=== PATIENT | female | born 1995 | race Caucasian/White ===

== ENCOUNTER 2024-01-29 17:02 | Inpatient (IN) | payer OTHER, SELFPAY ==
[2024-01-29] VITALS (16 sets, daily range): BP systolic 79–124; BP diastolic 42–67; PULSE 71–96; RESP 16; TEMP 36.4–36.9
--- NOTE | 2024-01-29 17:49 | PM.OBHP ---
OB - H&P: HPI History of Present Illness Chief complaint: Induction : 1 Para: 0 Date of last menstrual period: 05-05-23 Gestational age based on last menstrual period: 38.4 Indications for induction: other (IUGR) Comments: Patient has been seeing [facility] for management of IUGR. Consult report from [facility] recommends induction and delivery at 38-39 weeks due to IUGR. History of Present Dating criteria: LMP confirmed by 1st trimester US care: good care Ultrasounds: normal 1st trimester US and normal mid trimester US complications: other complications comment: IUGR Medical complications OB: none Labs Blood type: O (+) positive Rubella: nonimmune RPR/VDLR: nonreactive GBS status: negative HBsAG: negative Review of Systems ROS Status of ROS: 10 or more systems reviewed and unremarkable except as noted in history and below Exam Constitutional Vital Signs, click to edit/add: Last Vital Signs Pulse 78 01/29/24 17:45 BP 111/67 01/29/24 17:45 Documenting provider has reviewed patient's vital signs: yes Common normals: no apparent distress and oriented x3 General appearance: cooperative Orientation/consciousness: Yes awake HENMT Common normals: normocephalic Eye Common normals: EOMs intact bilaterally Neck & C-Spine Common normals: full ROM Lymph Lymphatic: no lymphadenopathy noted Chest Common normals: inspection of chest normal Respiratory Common normals: normal respiratory effort Effort & inspection: able to speak in complete sentences Auscultation: clear to auscultation bilaterally Cardio Common normals: regular rate and regular rhythm Rate: regular rate Rhythm: regular rhythm GI Common normals: Normal to inspection, nondistended, normoactive bowel sounds present Common normals: no CVA tenderness Back & Pelvis Common normals: no CVA tenderness Extremity Common normals: normal to inspection Neuro Yanci Coma Scale: document GCS findings Common normals: oriented x3 Psych Psychiatry clinicians, please identify where your Mental Status Exam is documented: Mental Status Exam documented in the separate MSE OB - A/P Assessment and Plan (1) Term : (2) IUGR (intrauterine growth restriction):
[2024-01-29] MEDS: DINOPROSTONE 10 MG VAG INSERT.ER VAGINAL (18:44)
[2024-01-29 18:50] LABS: Amphetamine Screen Urine NEGATIVE (NEGATIVE); Barbiturates Screen Urine NEGATIVE (NEGATIVE); Benzodiazepines Screen Urine NEGATIVE (NEGATIVE); Buprenorphine Screen Urine NEGATIVE (NEGATIVE); Cannabinoid Screen Urine NEGATIVE (NEGATIVE); Cocaine Screen Urine NEGATIVE (NEGATIVE); Methadone Screen Urine NEGATIVE (NEGATIVE); Methamphetamines Screen Urine NEGATIVE (NEGATIVE); Opiate Screen Urine NEGATIVE (NEGATIVE); Oxycodone Screen Urine NEGATIVE (NEGATIVE); Phencyclidine Screen Urine NEGATIVE (NEGATIVE); Tricyclic Antidepressant Urine NEGATIVE (NEGATIVE)
[2024-01-29 19:38] LABS: Hematocrit 35.7 % (36.0-48.0); Hemoglobin 11.1 g/dL (12.0-16.0); Mean Corpuscular HGB Conc 31.1 g/dL (29.9-35.2); Mean Corpuscular Hemoglobin 27.5 pg (26.7-34.0); Mean Corpuscular Volume 88.6 fL (81.0-99.0); Mean Platelet Volume 11.7 fL (9.5-13.5); Platelet Count 245 10^3/uL (150-450); Red Blood Count 4.03 10^6/uL (4.20-5.40); Red Cell Distribution Width 14.6 % (11.0-15.0); White Blood Count 10.7 10^3/uL (4.0-11.0)
[2024-01-29] MEDS: ZOLPIDEM TARTRATE 5 MG TABLET PO (20:33)
[2024-01-30] VITALS (35 sets, daily range): BP systolic 74–120; BP diastolic 42–69; PULSE 62–93; RESP 16; TEMP 36.4–36.9
[2024-01-30] MEDS: LACTATED RINGER'S SOLUTION 1,000 ML 125 ML IV ×2 (06:56→14:24)
[2024-01-30] MEDS: OXYTOCIN/0.9 % SODIUM CHLORIDE 10 UNITS/500 ML PLAST..BAG 6 UNIT IV (07:36)
--- NOTE | 2024-01-30 07:54 | W.PC.ACHO ---
Registration Status: ADM IN Primary Language: Argentine Preferred Language: Argentine Report given to Grzegorz Menendez RN. Active Medications Generic Name Dose Route Start Last Admin Trade Name Freq PRN Reason Stop Dose Admin Acetaminophen 1,000 mg 01/29/24 19:33 Acetaminophen 500 Mg Tablet PO Q6H PRN Pain Calcium Carbonate 500 mg 01/29/24 19:33 Calcium Carbonate 500 Mg (200mg Elemental) Tab Chew PO TID PRN Heartburn Carboprost Tromethamine 250 mcg 01/29/24 18:16 Carboprost Tromethamine 250 Mcg/Ml 1 Ml Vial IM 01/31/24 18:17 Q15M PRN Bleeding Diphenhydramine HCl 25 mg 01/30/24 04:19 Diphenhydramine Hcl 50 Mg/Ml (1ml) Vial IV 01/31/24 04:20 Q6H PRN Itching Ephedrine Sulfate 5 mg 01/30/24 04:19 Ephedrine Sulfate 50 Mg/Ml Vial IV 01/31/24 04:20 Q5M PRN Blood Pressure - Low Fentanyl Citrate 100 mcg 01/30/24 04:19 Fentanyl Citrate/Pf 100 Mcg/2 Ml Vial EPIDURAL ONCE PRN epidural Fentanyl Citrate 100 mcg 01/30/24 04:19 Fentanyl Citrate/Pf 100 Mcg/2 Ml Vial EPIDURAL ONCE PRN epidural Lactated Ringer's 1,000 mls @ 125 mls/hr 01/29/24 18:30 01/30/24 06:56 Lactated Ringers IV 125 mls/hr .Q8H RANDY Administration Oxytocin/Sodium Chloride 10 units in 500 mls @ 6 mls/hr 01/29/24 18:30 01/30/24 07:36 Pitocin 10 Unit/500 Ml-Ns IV 2 milliunit/min CONT RANDY 6 mls/hr Administration Protocol 2 MILLIUNIT/MIN Ropivacaine/Sodium Chloride 400 mg in 200 mls @ 6 mls/hr 01/30/24 04:30 Naropin 0.2% 400 Mg/200 Ml Bag EPIDURAL Q24H RANDY Lidocaine 5 ml 01/29/24 18:16 Lidocaine Viscous 2% 15 Ml Solution TOPICAL ONCE PRN Pain Lidocaine 1 ml 01/29/24 18:16 Lidocaine Hcl 1% 200 Mg/20 Ml Mdv INJ ONCE PRN Pain Lidocaine 5 ml 01/30/24 04:19 Lidocaine Hcl 2% Pf 100 Mg/5 Ml Vial INJ 01/31/24 04:20 Q1H PRN Epidural Methylergonovine Maleate 0.2 mg 01/29/24 18:16 Methylergonovine Maleate 0.2 Mg/Ml Ampule IM 01/31/24 18:17 ONCE PRN Uterine Contractility/Contract Methylergonovine Maleate 0.2 mg 01/29/24 18:16 Methylergonovine Maleate 0.2 Mg Tablet PO 01/31/24 18:17 Q4H PRN Uterine Contractility/Contract Misoprostol 600 mcg 01/29/24 18:16 Misoprostol 100 Mcg Tablet PO 01/31/24 18:17 ONCE PRN Uterine Bleeding Misoprostol 800 mcg 01/29/24 18:16 Misoprostol 100 Mcg Tablet SL 01/31/24 18:17 ONCE PRN Uterine Bleeding Misoprostol 1,000 mcg 01/29/24 18:16 Misoprostol 100 Mcg Tablet MD 01/31/24 18:17 ONCE PRN Uterine Bleeding Naloxone HCl 0.4 mg 01/30/24 04:19 Naloxone Hcl 0.4 Mg/Ml Vial IV 01/31/24 04:20 ONCE PRN Respiratory Depression Ondansetron HCl 4 mg 01/29/24 18:16 Ondansetron Pf 4 Mg/2 Ml Vial IV Q6H PRN Nausea And Vomiting Ondansetron HCl 4 mg 01/29/24 18:16 Ondansetron 4 Mg Rapdis Tablet SL Q6H PRN Nausea And Vomiting Oxytocin 10 unit 01/29/24 18:16 Oxytocin 10 Unit/Ml Vial IM 01/31/24 18:17 ONCE PRN Bleeding Zolpidem Tartrate 5 mg 01/29/24 19:33 01/29/24 20:33 Zolpidem Tartrate 5 Mg Tablet PO 5 mg HS PRN Administration Sleep Diet Category Date Time Status Regular Consistency Diet Diet 01/29/24 18:17 Active IV Insertion/Site Date of IV Line Insertion [20g 01/29/24 left Hand] IV Insertion Time [20g left 18:00 Hand] Neurology Patient orientation (short person,place,time,situation list) Respiratory Oxygen Delivery Method Room Air
[2024-01-30] MEDS: DINOPROSTONE 10 MG VAG INSERT.ER VAGINAL (18:17)
[2024-01-30] MEDS: ZOLPIDEM TARTRATE 10 MG TABLET PO (20:56)
[2024-01-31] VITALS (104 sets, daily range): BP systolic 83–132; BP diastolic 47–96; PULSE 52–157; RESP 16–18; TEMP 36.3–37.3
[2024-01-31] MEDS: LACTATED RINGER'S SOLUTION 1,000 ML 125 ML IV ×3 (07:09→14:16)
[2024-01-31] MEDS: OXYTOCIN/0.9 % SODIUM CHLORIDE 10 UNITS/500 ML PLAST..BAG 6 UNIT IV (08:08)
[2024-01-31] MEDS: ROPIVACAINE HCL/PF 400 MG/200 ML PREMIX 6 MG EPIDURAL (09:24)
[2024-01-31] MEDS: LIDOCAINE HCL 2% PF 100 MG/5 ML VIAL INJ (09:36)
--- NOTE | 2024-01-31 11:37 | PM.EN ---
Event Note Event Note: patient assessed and SVE performed. 2-360/-2 more midline that previously. Dr Solitario to room and SVE performed and FSE applied to assess heart rate patient tolerated exam well. Good pain relief with epidural
[2024-01-31] MEDS: OXYTOCIN/0.9 % SODIUM CHLORIDE 20 UNITS/1,000 ML PLAST..BAG 125 UNIT IV (21:32)
--- NOTE | 2024-01-31 22:16 | PM.OBPRCVD ---
Procedure Procedure: events: Labor Induction and Labor Augmentation Intrapartal events: Ineffective Pushing Induction method: other (cervidil x2 ) Delivery augmentation: rupture of membranes (Dr Solitario performed AROM and placed FSE ) Delivery monitor: external FHT and external uterine Route of delivery: Episiotomy Description: none L&D Laceration Description: vaginal - 2nd degree (per Dr Wise) Delivery repair: Vicryl Estimated blood loss (mL): 350 Anesthesia type: None Disposition: no change Complications: poor expulsatory effort and exhaustion. Patient epiduralized and had difficulty pushing . Decelerations noted down to 60's with pushing and then also down to the 60's when patient rested and did not push. Dr Wise called to come for delivery. When Dr Wise arrived in room, baby was delivery per this provider in attendance. Nuchal cord tight around neck and chest, and reduced easily with delivering. I somersaulted baby through cord. Dr Wise remained in room. She repaired 2nd degree vaginal laceration without difficulty. Infant Delivery date: 01/31/24 Gender: male presentation: vertex Placental delivery description: Spontaneous cord description: 3 Vessels, Nuchal Cord and Around Body x1 cord description comment: tight around neck and chest and reduced easily with delivery. heart rate - 1 minute: 100 bpm or Greater respiratory effort - 1 minute: No Spontaneous Effort muscle tone - 1 minute: Limp reflex response - 1 minute: Minimal Response color - 1 minute: Pallor or Cyanosis total score - 1 minute: 3 heart rate - 5 minute: 100 bpm or Greater respiratory effort - 5 minute: Slow Respiration/Weak Cry muscle tone - 5 minute: Limp reflex response - 5 minute: Minimal Response color - 5 minute: Pallor or Cyanosis total score - 5 minute: 4 heart rate - 10 minute: 100 bpm or Greater respiratory effort - 10 minute: Slow Respiration/Weak Cry muscle tone - 10 minute: Limp reflex response - 10 minute: Minimal Response color - 10 minute: Pallor or Cyanosis total score - 10 minute: 4
[2024-02-01] MEDS: IBUPROFEN 400 MG TABLET 800 MG PO ×3 (00:17→16:53)
[2024-02-01] MEDS: BENZOCAINE/MENTHOL 85 GRAM SPRAY BOTTLE 1 APPLIC TOPICAL (00:17)
[2024-02-01] MEDS: GLYCERIN/WITCH HAZEL PADS 1 PAD TOPICAL (00:18)
[2024-02-01 02:55] VITALS: BP 123/59; PULSE 94
[2024-02-01 03:56] VITALS: BP 123/59; PULSE 94; RESP 18; TEMP 36.7
[2024-02-01 06:04] LABS: Basophils Percent Auto 0.2 % (0.2-2.0); Eosinophils Percent Auto 0.2 % (0.9-7.0); Hematocrit 28.8 % (36.0-48.0); Hemoglobin 9.2 g/dL (12.0-16.0); Immature Granulocytes Abs Auto 0.11 10^3/uL (0.00-0.03); Immature Granulocytes Pct Auto 0.6 % (0.0-0.5); Lymphocytes Absolute Auto 1.6 10^3/uL (1.2-3.8); Lymphocytes Percent Auto 9.1 % (20.5-60.0); Mean Corpuscular HGB Conc 31.9 g/dL (29.9-35.2); Mean Corpuscular Volume 87.8 fL (81.0-99.0); Mean Platelet Volume 11.7 fL (9.5-13.5); Monocytes Absolute Auto 0.9 10^3/uL (0.3-0.8); Monocytes Percent Auto 5.3 % (1.7-12.0); Neutrophils Absolute Auto 15.1 10^3/uL (1.4-6.5); Neutrophils Percent Auto 84.6 % (43.0-75.0); Platelet Count 220 10^3/uL (150-450); Red Blood Count 3.28 10^6/uL (4.20-5.40); Red Cell Distribution Width 14.9 % (11.0-15.0); White Blood Count 17.8 10^3/uL (4.0-11.0)
[2024-02-01] MEDS: DOCUSATE SODIUM 100 MG CAPSULE PO ×2 (08:27→22:42)
[2024-02-01] MEDS: FERROUS SULFATE 325 MG TABLET PO ×2 (08:28→22:42)
--- NOTE | 2024-02-01 08:42 | PM.OBPN ---
OB - PN: Subj Subjective Patient comments: no complaints [place] status: doing well Exam Constitutional Vital Signs, click to edit/add: Last Vital Signs Temp 98.0 F 02/01/24 03:56 Pulse 94 H 02/01/24 03:56 Resp 18 02/01/24 03:56 BP 123/59 02/01/24 03:56 O2 Del Method Room Air 02/01/24 03:56 Common normals: no apparent distress GI Other: Fundus - firm below Umbilicus Other: perineum - minimal bleeding Results Labs Labs: Short CBC 02/01/24 Range/Units 05:49 WBC 17.8 H (4.0-11.0) 10^3/uL Hgb 9.2 L (12.0-16.0) g/dL Hct 28.8 L (36.0-48.0) % Plt Count 220 (150-450) 10^3/uL OB - PN: A/P Assessment and Plan (1) Term : (2) IUGR (intrauterine growth restriction): Plan - Vaginal Delivery day: 1 Plan: routine care Time Spent with Patient Time: Total time spent is greater than 50% in coordination of care (as documented) at patient's floor/unit and/or counseling patient: Total time spent with greater than 50% in coordination of care (as documented) at patient's floor/unit and/or counseling patient: less than 15 minutes
[2024-02-01 09:30] VITALS: RESP 16
[2024-02-01 09:56] VITALS: BP 108/67; PULSE 84
[2024-02-01 16:53] VITALS: BP 111/64; PULSE 87
[2024-02-01 17:54] VITALS: RESP 16; TEMP 36.6
[2024-02-02 00:59] VITALS: BP 113/73; PULSE 86
[2024-02-02 01:00] VITALS: BP 113/73; PULSE 86; RESP 16; TEMP 36.6
[2024-02-02] MEDS: IBUPROFEN 400 MG TABLET 800 MG PO ×2 (01:04→15:36)
--- NOTE | 2024-02-02 08:14 | P.OBPN_ITS ---
OB - PN: Subj Subjective Patient comments: no complaints [place] status: doing well Exam Constitutional Vital Signs, click to edit/add: Last Vital Signs Temp 97.9 F 02/02/24 01:00 Pulse 86 02/02/24 01:00 Resp 16 02/02/24 01:00 BP 113/73 02/02/24 01:00 O2 Del Method Room Air 02/02/24 01:00 Documenting provider has reviewed patient's vital signs: yes Common normals: no apparent distress GI Inspection: normal to inspection Other: Fundus - firm below umbilicus Other: perineum - minimal bleeding OB - PN: A/P Assessment and Plan (1) Term : Assessment and Plan: Doing well Home today (2) IUGR (intrauterine growth restriction): Plan - Vaginal Delivery day: 2 Plan: routine care and discharge home Time Spent with Patient Time: Total time spent is greater than 50% in coordination of care (as documented) at patient's floor/unit and/or counseling patient: Total time spent with greater than 50% in coordination of care (as documented) at patient's floor/unit and/or counseling patient: less than 15 minutes
--- NOTE | 2024-02-02 08:21 | PM.OBDS ---
DS: Providers Provider Date of admission: 01/29/24 17:02 Primary care physician: Non-Staff Physician, DS: Diagnosis Discharge Diagnosis (1) Term : (2) IUGR (intrauterine growth restriction): OB - DS: Summary Infant Delivery method: spontaneous vaginal delivery Gender: male Discharge plan: home Time Spent with Patient Time attestation: Total time spent providing and/or coordinating discharge services: Time spent: less than 30 minutes Exam Constitutional Vital Signs, click to edit/add: Last Vital Signs Temp 97.9 F 02/02/24 01:00 Pulse 86 02/02/24 01:00 Resp 16 02/02/24 01:00 BP 113/73 02/02/24 01:00 O2 Del Method Room Air 02/02/24 01:00 Discharge Plan Discharge Disposition: Home, Self-Care Activity: resume usual activities as tolerated Diet: advance to your usual diet Forms: Portal Instructions Follow Up Appointments: SCHEDULED
[2024-02-02 09:43] VITALS: BP 129/82; PULSE 94; RESP 18; TEMP 36.9
[2024-02-02] MEDS: DOCUSATE SODIUM 100 MG CAPSULE PO (15:36)
[2024-02-02] MEDS: FERROUS SULFATE 325 MG TABLET PO (15:37)
== END 2024-02-02 20:20 | disposition home or self-care (01) | DRG 807 ==
PROVIDERS: Admitting Provider Midwife; Visit Provider Midwife
DX: O36.5930 Maternal care for other known or suspected poor fetal growth, third trimester, not applicable or unspecified (principal); Z37.0 Single live birth; Z3A.38 38 weeks gestation of pregnancy; O70.1 Second degree perineal laceration during delivery
CPT/HCPCS: 36415; 59050; 59410; 80307; 85025; 85027; 86900; 86901; 88307; 96365; 96366

== ENCOUNTER 2024-02-03 08:43 | Outpatient (OUT) | payer OTHER, SELFPAY ==
--- OUTSIDE RECORDS SUMMARY | 2024-02-03 08:51 | XMS_ITS | CCD ---
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 Name Role Phone Rai Gonzales MD Primary Care Provider Unavaila ble Unavailable Primary Care Provider Unavailabl e GONZALES, RAI P Primary Care Unavailable FLORO, JOSEPH Referring Unavailable DOCHEVA, NIKOLINA P Attending Unavailable FLORO, JOSEPH Referring Unavailable GONZALES, RAI P Primary Care Unavailable DOCHEVA, NIKOLINA P Referring Unavailable GONZALES, RAI P Primary Care Unavailable DOCHEVA, NIKOLINA P Referring Unavailable GONZALES, RIA P Primary Care Unavailable DIANNA, RASHID Attending Unavailable GONZALES, RAI P Primary Care Unavailable DIANNA, RASHID Attending Unavailable GONZALES, RAI P Primary Care Unavailable FLORO, JOSEPH Referring Unavailable FLORO, JOSEPH Referring Unavailable GONZALES, RAI P Primary Care Unavailable DIANNA, RASHID Attending Unavailable DIANNA, RASHID Referring Unavailable GONZALES, RAI P Primary Care Unavailable FLORO, JOSEPH L Referring Unavailable FLORO, JOSEPH L Attending Unavailable FLORO, JOSEPH L Attending Unavailable FLORO, JOSEPH L Attending Unavailable FLORO, JOSEPH L Attending Unavailable FLORO, JOSEPH L Attending Unavailable FLORO, JOSEPH L Attending Unavailable FLORO, JOSEPH L Attending Unavailable FLORO, JOSEPH L Attending Unavailable Medications Current Medications Medication Drug Class(es) Dates Sig (Normalized) Sig (Original) docusate sodium 100 mg oral capsule (12 sources) Start: 11-21-2023 End: 02-19-2024 take 1 capsule by mouth in the morning docusate sodium (Colace) 100 MG capsule Indications: Anemia affecting first Take 1 capsule (100 mg) by mouth in the morning and 1 capsule (100 mg) before bedtime. 30 capsule 5 11/21/2023 02/19/2024 Active ferrous sulfate 325 mg oral tablet (12 sources) Start: 11-21-2023 End: 02-19-2024 take 1 tablet by mouth at mealtime ferrous sulfate (FerrouSul) 325 (65 Fe) MG tablet Indications: Anemia affecting first Take 1 tablet (325 mg) by mouth in the morning. Take with meals. 30 tablet 2 11/21/2023 02/19/2024 Active ondansetron 8 mg oral tablet (6 sources) Serotonin-3 Receptor Antagonist take 1 tablet by mouth every eight hours as needed for nausea and vomiting ondansetron (ZOFRAN) 8 mg tablet Take 1 tablet (8 mg total) by mouth every 8 (eight) hours as needed for nausea or vomiting. 0 Active CQI78-EC-rx5-mgr-ro a-fish oil ( GUMMY) 400 mcg-35 mg -25 mg-5 mg tablet,chewable (6 sources) Start: 12-23-2023 ETX23-BD-wk1-qjp-c pa-fish oil ( GUMMY) 400 mcg-35 mg -25 mg-5 mg tablet,chewable Indications: 33 weeks gestation of Chew 1 tablet and swallow in the morning. 30 tablet 12 12/23/2023 Active Completed/Discontinued Medications Medication Drug Class(es) Dates Sig (Normalized) Sig (Original) ibuprofen 800 mg oral tablet (1 source) Nonsteroidal Anti-inflammatory Drug End: 12-23-2023 take 1 tablet by mouth every six hours as needed for pain ibuprofen (ADVIL,MOTRIN) 800 mg tablet Take 800 mg by mouth every 6 (six) hours as needed for pain. 0 12/23/2023 Discontinued (Therapy completed) PNV no.95/ferrous fum/folic ac ( ORAL) (1 source) End: 12-23-2023 PNV no.95/ferrous fum/folic ac ( ORAL) Take by mouth. 0 12/23/2023 Discontinued (Alternate therapy) Problems Problem Classification Problem Date Documented Da te Episodic/Chronic Other complications of (1 source) heart echogenicity on obstetric ultrasound scan; Translations: [Abnormal ultrasonic finding on screening of mother] 12-23-2023 Episodic Other complications of (12 sources) Poor growth affecting management; Translations: [Maternal care for other known or suspected poor growth, third trimester, not applicable or unspecified] Onset: 01-13-2024 01-13-2024 Episodic Other complications of (1 source) Abnormal ultrasonic finding on screening of mother; Translations: [Abnormal ultrasonic finding on screening of mother] Onset: 12-23-2023 Episodic Other complications of (1 source) Supervision of high risk , unspecified, unspecified trimester; Translations: [Supervision of high risk , unspecified, unspecified trimester] Onset: 01-20-2024 Episodic Other complications of (1 source) Maternal care for other known or suspected poor growth, unspecified trimester, not applicable or unspecified; Translations: [Maternal care for other known or suspected poor growth, unspecified trimester, not applicable or unspecified] Onset: 01-20-2024 Episodic Other complications of (1 source) Maternal care for other known or suspected poor growth, third trimester, not applicable or unspecified; Translations: [Maternal care for other known or suspected poor growth, third trimester, not applicable or unspecified] Onset: 01-13-2024 Episodic Other screening for suspected conditions (not mental disorders or infectious disease) (3 sources) Encounter for other specified screening; Translations: [Patient encounter status] Onset: 12-23-2023 01-16-2024 Episodic Polyhydramnios and other problems of amniotic cavity (3 sources) Polyhydramnios; Translations: [Polyhydramnios, third trimester, not applicable or unspecified] Onset: 01-20-2024 01-13-2024 Episodic Residual codes; unclassified (1 source) Gestation period, 33 weeks; Translations: [33 weeks gestation of ] 12-23-2023 Episodic Residual codes; unclassified (1 source) 33 weeks gestation of ; Translations: [33 weeks gestation of ] Onset: 12-23-2023 Episodic Unclassified (1 source) possible IUGR Onset: 12-23-2023 Unclassified (1 source) add on for FGR Onset: 01-13-2024 Results Test Name Value Interpretation Reference Range Facil ity US OB FOLLOW UP TRANSABDOMIN AL APPROACHon 12-09-2023 US OB FOLLOW UP TRANSABDOMINAL APPROACH FINDINGS: Single live intrauterine . heart rate 163 bpm. Cephalic position. Grade 1 anterior placenta. SIMRAN 12.7 cm. Cervical length 5.0 cm. Estimated sonographic gestational age 30 weeks, 0 days. Gestational age by dates 31 weeks, 5 days. Estimated sonographic date of delivery February 17, 2024. Estimated weight 1517 g (6.7%, by LMP percentile). BPD 7.54 cm. HC 26.57 cm. FL 6.00 cm. AC 25.48 cm. IMPRESSION: Impression: Single live intrauterine with estimated sonographic gestational age 30 weeks, 0 days. Estimated weight 1517 g. ELECTRONICALLY SIGNED BY: Nahten Beck MD Normal Not Available US OB 14+ WEEKS ANATOMY SCAN on 09-23-2023 US OB 14+ WEEKS ANATOMY SCAN EXAM: US OB 14+ WEEKS ANATOMY SCAN [id number] CLINICAL INDICATION: Anatomy scan COMPARISON: 07/02/2023 FINDINGS: Transabdominal imaging was performed. A single living intrauterine demonstrates spontaneous movement. Cervical length is at least 6.2 cm and the cervix is closed. heart rate is 138 beats per minute. Amniotic fluid index is 13.4 cm, 38th percentile. Fetus is in breech position. The placenta is anterior, grade 1, the edge 2 cm from the cervix. Measurements include: biparietal diameter 4.6 cm, head circumference 17.4 cm, abdominal circumference 15.0 cm and femur length 3.2 cm. This calculates to a mean gestational age by ultrasound of 20 weeks 0 days. Estimated date of delivery is 02/10/2024. Estimated weight is 331 g (12 ounces). Estimated weight percentile is 17%. The following anatomy is identified: Lateral ventricles, cerebellum, cisterna magna, orbits, four-chamber heart with left and right ventricular outflow tracts, stomach, kidneys, three-vessel cord with insertion, bladder, male genitalia, 12 long bones, diaphragm, longitudinal and transverse images of the spine. There are no gross abnormalities however please note that ultrasound cannot detect all anomalies. IMPRESSION: Single live intrauterine at 20 weeks gestation. See details above. ELECTRONICALLY SIGNED BY: José Miguel Flores MD Normal Not Available Vital Signs Date Time Vital Sign Value Performing Clinician Faci josiey 01-16-2024 09:16-0500 Body mass index (BMI) [Ratio] 37.79 kg/m2 Joseph Vickerso CNM Work Phone: [facility] 01-16-2024 09:16-0500 Body weight 90.72 kg Joseph Guallpa CNM Work Phone: [facility] 01-16-2024 09:16-0500 Diastolic blood pressure 80 mm[Hg] Joseph Vickerso CNM Work Phone: [facility] 01-16-2024 09:16-0500 Systolic blood pressure 118 mm[Hg] Joseph Vickerso CNM Work Phone: [facility] 01-13-2024 11:42-0500 Body height 154.9 cm Rashid Bustamante MD Work Phone: [facility] 01-13-2024 11:42-0500 Body mass index (BMI) [Ratio] 37.6 kg/m2 Rashid Bustamante MD Work Phone: [facility] 01-13-2024 11:42-0500 Body weight 90.27 kg Rashid Bustamante MD Work Phone: [facility] 01-13-2024 11:42-0500 Diastolic blood pressure 63 mm[Hg] Rashid Bustamnate MD Work Phone: [facility] 01-13-2024 11:42-0500 Heart rate 76 /min Rashid Bustamante MD Work Phone: [facility] 01-13-2024 11:42-0500 Systolic blood pressure 100 mm[Hg] Rashid Bustamante MD Work Phone: [facility] 12-23-2023 13:56-0500 Diastolic blood pressure 63 mm[Hg] Vega Torres MD Work Phone: [facility] 12-23-2023 13:56-0500 Heart rate 91 /min Vega Torres MD Work Phone: [facility] 12-23-2023 13:56-0500 Systolic blood pressure 111 mm[Hg] Vega Torres MD Work Phone: [facility] 12-09-2023 17:33-0500 Diastolic blood pressure 70 mm[Hg] Joseph Floro CNM Work Phone: [facility] 12-09-2023 17:33-0500 Systolic blood pressure 112 mm[Hg] Joseph Floro CNM Work Phone: [facility] Encounters Encounter Date Encounter Type Care Provider Facility Start: 01-29-2024 End: 01-30-2024 ambulatory JOSEPH L FLORO Not Available Start: 01-28-2024 Telephone encounter Stephanie Granda RDMS, RVT [facility] US Imaging Start: 01-23-2024 End: 01-24-2024 ambulatory JOSEPH L FLORO Not Available Start: 01-21-2024 Orders Only Maria Fernanda Harrison CMA [facility] r[facility]- Medicine at [facility] Comment on above: Poor growth af fecting management of mother in third trimester, single or unspecified fetus (Primary Dx) Start: 01-20-2024 End: 01-21-2024 ambulatory RASHID CAMPOSUC [facility] Start: 01-16-2024 Bamboo flowsheet Joseph L Juan ro CNM Work Phone: [facility] Start: 01-16-2024 Bamboo flowsheet Joseph L Juan ro CNM Work Phone: [facility] Start: 01-16-2024 End: 01-17-2024 ambulatory JOSEPH L FLORO Not Available Start: 01-16-2024 End: 01-16-2024 Subsequent care visit Joseph L Floro CNM Work Phone: [facility] Comment on above: screening for streptococcus B; IUGR (intrauterine growth restriction) affecting care of mother, third trimester, fetus 1 Start: 01-13-2024 End: 01-13-2024 Orders Only Berkley Anthony RN [facility] Comment on above: Poor growth af fecting management of mother in third trimester, single or unspecified fetus (Primary Dx); Polyhydramnios in third trimester complication, single or unspecified fetus Start: 01-13-2024 End: 01-13-2024 Office outpatient visit 15 minutes Rashid Bustamante MD Work Phone: [facility]- [facility] at [facility] Comment on above: Poor growth af fecting management of mother in third trimester, single or unspecified fetus (Primary Dx) Start: 01-02-2024 End: 01-03-2024 ambulatory JOSEPH L FLORO Not Available Start: 12-31-2023 End: 12-31-2023 ambulatory [facility] Start: 12-23-2023 End: 12-23-2023 ambulatory [facility] Start: 12-23-2023 End: 12-23-2023 Office consultation new/estab patient 60 min Vega Torres MD Work Phone: [facility] Comment on above: 33 weeks gestation o f (Primary Dx); Echogenic intracardiac focus of fetus on ultrasound Start: 12-09-2023 End: 12-10-2023 ambulatory JOSEPH L FLORO Not Available Start: 12-09-2023 End: 12-09-2023 Subsequent care visit Joseph L Floro CNM Work Phone: [facility] Comment on above: Poor growth af fecting management of mother in third trimester, single or unspecified fetus (Primary Dx) Start: 11-19-2023 End: 11-19-2023 ambulatory JOSEPH L FLORO Not Available Start: 11-07-2023 End: 11-08-2023 ambulatory JOSEPH L FLORO Not Available Start: 10-10-2023 End: 10-11-2023 ambulatory JOSEPH L FLORO Not Available Plan of Treatment Date Care Activity Detail Author Start: 01-21-2025 End: 01-21-2025 US MFM with or without consult US MFM with or without consult Imaging Routine Poor growth affecting management of mother in third trimester, single or unspecified fetus Expected: 01/21/2025 (Approximate), Expires: 01/21/2025 [facility] Work Phone: Comment on above: Expected: 01/21/2025 (Approximate), Expires: 01/21/2025 Start: 01-13-2025 Adult BMI Screening Adult BMI Screen ing [facility] Start: 01-13-2025 Tobacco Screening Tobacco Screening [facility] Start: 12-23-2024 Tobacco Screening Tobacco Screening [facility] Start: 02-11-2024 End: 01-13-2025 US MFM with or without consult US MFM with or without consult Imaging Routine Poor growth affecting management of mother in third trimester, single or unspecified fetus Polyhydramnios in third trimester complication, single or unspecified fetus Expected: 02/11/2024 (Approximate), Expires: 01/13/2025 [facility] Comment on above: Expected: 02/11/2024 (Approximate), Expires: 01/13/2025 Start: 02-03-2024 End: 02-03-2024 Patient encounter procedure 02/03/2024 3:00 PM EST Appointment [facility] Imaging [address] [place] [id number] [facility] Start: 01-23-2024 End: 01-23-2024 Patient encounter procedure 01/23/2024 3:30 PM EST Routine [facility] [address] [place] [address] Joseph Guallpa CNM [address] [place], [place] [id number] [facility] Start: 01-20-2024 End: 01-13-2025 US MFM with or without consult US MFM with or without consult Imaging Routine Poor growth affecting management of mother in third trimester, single or unspecified fetus Polyhydramnios in third trimester complication, single or unspecified fetus Expected: 01/20/2024 (Approximate), Expires: 01/13/2025 [facility] Work Phone: Comment on above: Expected: 01/20/2024 (Approximate), Expires: 01/13/2025 Start: 01-16-2024 End: 01-16-2025 STREPTOCCOUS, GROUP B CULTURE STREPTOCCOUS, GROUP B CULTURE Lab Routine screening for streptococcus B Expected: 01/16/2024 (Approximate), Expires: 01/16/2025 [facility] Work Phone: Comment on above: Expected: 01/16/2024 (Approximate), Expires: 01/16/2025 Start: 01-16-2024 End: 01-16-2025 US biophysical profile wo non stress testing US biophysical profile wo non stress testing Imaging Routine IUGR (intrauterine growth restriction) affecting care of mother, third trimester, fetus 1 Expected: 01/16/2024, Expires: 01/16/2025 [facility] Comment on above: Expected: 01/16/2024 , Expires: 01/16/2025 Start: 01-16-2024 End: 01-16-2024 Patient encounter procedure 01/16/2024 9:00 AM EST Routine [facility] [address] [place] [phone] Joseph Guallpa CNM [address] [place], [place] [id number] [facility] Start: 01-14-2024 End: 01-14-2024 Telemedicine consultation with patient 01/14/2024 1:00 PM EST Telemedicine [facility] at [facility] [address] [place] [phone] Vega Torres MD [address], [address] [place] [id number] [facility] Start: 01-13-2024 End: 01-13-2024 Patient encounter procedure 01/13/2024 11:00 AM EST Appointment [facility] [place] [address] [facility] Start: 12-31-2023 End: 12-31-2023 Patient encounter procedure 12/31/2023 11:00 AM EST Appointment [facility] [address] [place] [address] [facility] Start: 08-02-2023 Influenza vaccination Influenza Vacc ine [facility] Start: 08-09-2020 DTaP,Tdap and Td Vaccines (7 - Td or Tdap) DTaP,Tdap and Td Vaccines (7 - Td or Tdap) [facility] Start: 2018 Screening for malign ant neoplasm of cervix Pap Smear [facility] Start: 2015 Adult BMI Follow Up Plan Adult BMI Follow Up Plan [facility] Start: 2015 Adult BMI Screening Adult BMI Screen ing [facility] Start: 2009 Depression Screening Depression Scre ening [facility] Payers Date Payer Category Payer Unknown [employer] [id number] 2023-Present [phone] [address] [place] [address] [id number] 2023 Private Health Insurance [id number] 2023 Private Health Insurance [id number] 2023 Unknown [id number] 2017 Private Health Insurance [id number] 1997 Unknown [id number] 286 1997 Unknown [id number] [id number] 286 1997 Unknown [id number] 2.16.840.1.630395.3.579.2.1 286 1997 Unknown [id number] 2.16.840.1.422197.3.579.2.1 286 1997 Unknown [id number] 2.16.840.1.489910.3.579.2.1 286 1997 Unknown [id number] 2.16.840.1.376006.3.579.2.1 286 1997 Unknown [id number] 2.16.840.1.509109.3.579.2.1 286 1997 Unknown [id number] 2.16.840.1.215447.3.579.2.1 286 1997 Unknown [id number] 2.16.840.1.307731.3.579.2.1 259 1997 Unknown [id number] 2.16.840.1.920891.3.579.2.1 259 1997 Unknown [id number] 2.16.840.1.444552.3.579.2.1 259 1997 Unknown [id number] 2.16.840.1.838422.3.579.2.1 259 1997 Unknown [id number] 2.16.840.1.394986.3.579.2.1 259 1997 Unknown [id number] 2.16.840.1.378508.3.579.2.1 259 1997 Unknown [id number] 2.16.840.1.127688.3.579.2.1 259 1997 Unknown [id number] 2.16.840.1.505364.3.579.2.1 259 1997 Unknown [id number] 259 Social History Date Type Detail Facility Start: 07-03-2023 End: 12-23-2023 Tobacco smoking status MOIS Ex-smoker [facility] History of tobacco use Current smoker [facility] History of tobacco use Cigarette Smoker P [facility] History of tobacco use Tobacco U se Types Packs/Day Years Used Date Smoking Tobacco: Former Cigarettes Vaping/E-cigarettes Smokeless Tobacco: Never [facility] Start: 07-03-2023 End: 12-23-2023 Tobacco use and exposure Smokeless tobacco non-user [facility] Start: 12-23-2023 End: 01-13-2024 Alcohol intake Ex-drinker (finding) [facility] Start: 11-20-2019 End: 01-12-2021 History of Social function [facility] Start: 11-20-2019 End: 01-12-2021 Alcohol Use Disorder Identification Test - Consumption [AUDIT-C] [facility] Frequency of Alcohol Consumption Never [facility] Start: 05-19-2023 [facility] Start: 1995 Sex Assigned At Not on file [facility] Clinical Notes 12-09-2023 to 01-28-2024 Telephone Encounter - Stephanie Granda RDMS, SANNA - 01/28/2024 12:11 PM ESTTelephone Encounter - Stephanie Granda RDMS, RVT - 01/28/2024 12:11 PM Сергей Guallpa CNM - 01/16/2024 9:00 AM EST Note Date & Type Note Facility 01-28-2024 Miscellaneous Notes Formattin g of this note might be different from the original. Call made to [facility]. They confirmed that the patient is scheduled for induction on 01/29/24. Due to induction, the patient is not scheduled for any further umbilical Dopplers. documented in this encounter [facility] 01-28-2024 Telephone encount er Note Call made to [facility]. They confirmed that the patient is scheduled for induction on 01/29/24. Due to induction, the patient is not scheduled for any further umbilical Dopplers. [facility] 01-16-2024 History of Presen t illness Narrative Subjective No chief complaint on file. Marilu Oconnell is a 28 y.o. at 36w4d with a working estimated date of delivery of 02/09/2024, by Last Menstrual Period who presents for a routine visit. She denies vaginal bleeding, leakage of fluid, decreased movements, or contractions. Her is complicated by: IUGR, sees [facility] Objective Physical Exam weight: 200 lb Expected Total Weight Gain: 15 lb-25 lb Pregravid BMI: 29.30 BP: 118/80 Urine glucose-negative,protein-negati ve Reactive NST today Assessment/Plan Diagnoses and all orders for this visit: screening for streptococcus B - STREPTOCCOUS, GROUP B CULTURE; Future IUGR (intrauterine growth restriction) affecting care of mother, third trimester, fetus 1 - US biophysical profile wo non stress testing; Future Continue vitamin. Labs reviewed. GBS taken. Expected mode of delivery Follow up in 1 week for a routine visit. documented in this encounter [facility] 01-13-2024 Telephone encount er Note MFM left a vm that they would like you to order a test with the DX OF IUT-R Non stress test. Please call [phone] and let them know when she is scheduled. [facility] 01-13-2024 Miscellaneous Notes Formattin g of this note might be different from the original. MFM left a vm that they would like you to order a test with the DX OF IUT-R Non stress test. Please call [phone] and let them know when she is scheduled. documented in this encounter [facility] 01-13-2024 Miscellaneous Notes Formattin g of this note might be different from the original. VM left for [facility] in [place] regarding scheduling non-stress tests for this patient. Pump Press Operator left patient name, date of , and our contact number for any other questions. documented in this encounter [facility] 01-13-2024 Telephone encount er Note VM left for [facility] in [place] regarding scheduling non-stress tests for this patient. Pump Press Operator left patient name, date of , and our contact number for any other questions. [facility] 01-13-2024 History of Presen t illness Narrative Headache/epigastric pain/blurry vision/swelling? No Cramping/contractions? Cramping occasionally Abnormal vaginal discharge? No Spotting or vaginal bleeding? No Loss of fluid like your water may have broken? No Recent ER visits or hospitalizations? No Any concerns that you would like me to mention to the provider today? No REASON FOR TELEMEDICINE VIDEO OFFICE VISIT: growth restriction with estimated weight at the 7th percentile. HISTORY OF PRESENT ILLNESS: Marilu Oconnell is a pleasant 28 y.o. G 1 P0 at 36w1d due on Estimated Date of Delivery: 02/09/24 . has been complicated with growth restriction with estimated weight at the 7th percentile. We started our discussion with pathophysiology of growth restriction (FGR) that can result from a variety of maternal, , and placental conditions.1 Although the primary underlying mechanisms for FGR are varied, they often share the same final common pathway of suboptimal nutrition and uteroplacental perfusion. Chromosomal disorders and congenital malformations are responsible for approximately 20% of FGR cases. Suboptimal perfusion of the maternal placental circulation is the most common cause of FGR and accounts for 25e30% of all cases. FGR occurs in up to 10% of pregnancies and is a leading cause of infant morbidity and mortality. In fetuses at all gestational ages with weights or abdominal circumference below the 10th percentile, the stillbirth rate is approximately 1.5%, which is twice the rate in fetuses with normal growth. Further discussed the frame work of managing fetus with growth restriction. This include testing in the form of nonstress tests SIMRAN and Doppler studies that will occur serially until the patient is delivered. Timing of delivery is contingent upon testing Doppler studies and amniotic fluid index and can change according to the test results. Currently the patient has no complaints. The patient denies nausea, vomiting, abdominal pain, vaginal bleeding, SOB or chest pain. Patient Active Problem List Diagnosis Poor growth affecting management of mother in third trimester ALLERGIES: No Known Allergies CURRENT MEDICATIONS: Current Outpatient Medications: docusate sodium (COLACE) 100 mg capsule, Take 1 capsule (100 mg total) by mouth in the morning and 1 capsule (100 mg total) before bedtime., Disp: , Rfl: ferrous sulfate 325 (65 FE) mg tablet, Take 1 tablet (325 mg total) by mouth daily with breakfast., Disp: , Rfl: ondansetron (ZOFRAN) 8 mg tablet, Take 1 tablet (8 mg total) by mouth every 8 (eight) hours as needed for nausea or vomiting., Disp: , Rfl: INK12-NM-hf4-bpi-vlc-ycqq oil ( GUMMY) 400 mcg-35 mg -25 mg-5 mg tablet,chewable, Chew 1 tablet and swallow in the morning., Disp: 30 tablet, Rfl: 12 History reviewed. No pertinent past medical history. REVIEW OF SYSTEMS: Head and Neck: Negative for any dizziness and headaches. Cardiovascular and Respiratory System: Denies any chest pain, shortness of breath, and coughing. Abdominal and System: Denies any abdominal pain, nausea, vomiting, vaginal bleeding, and vaginal discharge REVIEW OF ULTRASOUND. Pertinent Ultrasound findings are see report. PHYSICAL EXAMINATION: BP 100/63 Pulse 76 Ht 154.9 cm (5' 1 ) Wt 90.3 kg (199 lb) LMP 05/05/2023 (Exact Date) BMI 37.60 kg/m . Gravid abdomen, Respirations not labored. Normal gait well oriented in time place and person. RECOMMENDATION: 1. Continue serial Doppler studies at M office. 2. Continue twice weekly NST and weekly SIMRAN at her OB office. 3. Delivery at 38-39 weeks gestation. Vaginal delivery is to be anticipated with C section reserve for routine obstetrical indications. 4. Patient is low risk and can be delivered at her local hospital. Thank you for allowing me to participate in [facility]. If there are any questions, please do not hesitate to call me. Sincerely, RASHID BUSTAMANTE MD Video Visit via Real-time Synchronous Audiovisual Provider Location: [facility] AT [address] [id number] Patient Location: [facility] office. Patient Location Tugboat Engineer: None Video Visit Consent Statement: I discussed risks, benefits, and alternatives of a real-time synchronous audiovisual consultation with the patient (and any accompanying persons) including the risks that the patient's personal health details and medical records will be discussed over real-time, synchronous, interactive video/audio/telecommunication technology, the visit will not be recorded without the express consent of both the provider and the patient, and that there are some limitations compared to [id number]-tx-[id number] evaluations. We elected to proceed. documented in this encounter [facility] 12-23-2023 History of Presen t illness Narrative [facility] Maternal- Medicine Consult Note Reason For Consult: Concern for Growth Restriction HPI: Marilu Oconnell is a 28 y.o. at 33w1d with Estimated Date of Delivery: 02/09/24 based on LMP who presented for consultation from Joseph Salcido APRN-CNM regarding Chief Complaint Patient presents with possible IUGR I have reviewed the pertinent available patient records including but not limited to notes, labs and images She presents today with her partner. She reports that she is doing well. She reports normal movements and she denies leakage of fluid, contractions or vaginal bleeding. She denies fever, chills, nausea, vomiting, shortness of breath, chest pain, headache, blurry vision, right upper quadrant pain or edema. Complications: Growth today normal EFW 12%ile, AC 23%ile Echogenic intracardiac focus on ultrasound today bowel measures 1 cm. Unclear if small vs large bowel on the image with the measurment. Rescanned and peristalsis was noted. Measurments of large and small bowel were taken then normal, however due to ambiquity of the image will re-evaluate in 1 week Denies family history of: Learning difficulties, congenital anomalies, DVT/VTE, early-onset cancer, early-onset cardiac disease or other inherited conditions Denies smoking, alcohol or other substance use in She has opted out of aneuploidy screening and carrier screen Recent hospitalization: no Review of systems: Review of systems was noncontributory OB Hx: OB History Para Term AB Living 1 SAB IAB Ectopic Multiple Live Births # Outcome Date GA Lbr Jorden/2nd Weight Sex Delivery Anes PTL Lv 1 Current PMH: History reviewed. No pertinent past medical history. PSHIST: Past Surgical History: Procedure Laterality Date WISDOM TOOTH EXTRACTION Allergies: No Known Allergies Meds: Prior to Admission medications Medication Sig Start Date End Date Taking? Authorizing Provider docusate sodium (COLACE) 100 mg capsule Take 1 capsule (100 mg total) by mouth in the morning and 1 capsule (100 mg total) before bedtime. Not In System Ref Prov ferrous sulfate 325 (65 FE) mg tablet Take 1 tablet (325 mg total) by mouth daily with breakfast. Not In System Ref Prov ondansetron (ZOFRAN) 8 mg tablet Take 1 tablet (8 mg total) by mouth every 8 (eight) hours as needed for nausea or vomiting. Not In System Ref Prov PNV no.95/ferrous fum/folic ac ( ORAL) Take by mouth. Not In System Ref Prov SH: Social History Socioeconomic History Marital status: Single Spouse name: Not on file Number of children: Not on file Years of education: Not on file Highest education level: Not on file Occupational History Not on file Tobacco Use Smoking status: Former Types: Vaping/E-cigarettes , Cigarettes Smokeless tobacco: Never Substance and Sexual Activity Alcohol use: Not Currently Drug use: Never Sexual activity: Yes Partners: Male Other Topics Concern Not on file Social History Narrative Not on file Social Determinants of Health Financial Resource Strain: Not on file Food Insecurity: Not on file Transportation Needs: Not on file Physical Activity: Not on file Stress: Not on file Social Connections: Not on file Interpersonal Safety: Not on file Physical Exam: Vital Signs Vitals: 12/23/23 1356 BP: 111/63 Pulse: 91 Physical Exam: Gen: Not in acute distress, alert and oriented. Eyes: Pupils equal and reactive Chest: Nonlabored breathing Cardiac: Pulse was regular on vital signs assessment Abdomen: Gravid Skin/extremities: Appears intact. No visible lesions MS:no visible edema Neuro: No focal deficits Notes/Imaging/Labs reviewed Abstract on 12/23/2023 Component Date Value Ref Range Status Syphilis 07/18/2023 non-reactive Final Rubella immune IgG 07/18/2023 <0.90 Final Abo/Rh(D) 07/18/2023 O Positive Final Antibody Screen 07/18/2023 negative Final Chlamydia Dna(Pcr) 07/18/2023 negative Final Gonorrhoeae Dna(Pcr) 07/18/2023 negative Final HIV 1&2 AB/AG 07/18/2023 non-reactive Final Amphetamine/Methamphetamine 07/18/2023 negative Final Hepatitis B Surface Antigen 07/18/2023 non-reactive Final Ultrasound findings Pertinent Ultrasound findings are IMPRESSION: 1. Single intrauterine size consistent with dates. 2. Echogenic focus identified in the cardiac left ventricle. 3. The HC measures less than the 3rd percentile for the gestational age but reference biometric measurement between 2 and 3 SD of the mean. (Domingo and colleagues, 1984) 4. bowel measures 1 cm. Unclear if small vs large bowel on the image with the measurment. Rescanned and peristalsis was noted. Measurments of large and small bowel were taken then normal, however due to ambiquity of the image will re-evaluate in 1 week 5. Amniotic fluid assessment (DVP) is normal. Assessment/Plan 28 y.o. @ at 33w1d with Estimated Date of Delivery: 02/09/24 here for consultation regardin. 33 weeks gestation of - FOY21-FI-lz4-udm-cne-nuyf oil ( GUMMY) 400 mcg-35 mg -25 mg-5 mg tablet,chewable; Chew 1 tablet and swallow in the morning. Dispense: 30 tablet; Refill: 12 2. Echogenic intracardiac focus of fetus on ultrasound Echogenic intracardiac focus (EIF) and Isolated echogenic intracardiac focus (EIF) is noted. No other soft signs of aneuploidy are seen at this time.EIF common finding during second trimester anatomy ultrasounds and is identified in 3-5% of normal fetuses. We discussed with the patent the significance of an echogenic focus in the ventricle of the heart. This is not an abnormality per se and is not associated with congenital heart disease, It is usually a normal variant seen in about 4% of pregnancies. An EIF often disappears later in or postnatally, and is not associated with myocardial dysfunction or structural anomalies. Down syndrome fetuses have higher incidence of echogenic foci than normal fetuses. Therefore it is considered to be risk factor for Down syndrome. Per [facility] recommendations for people with negative serum or cell-free DNA screening results and an isolated echogenic intracardiac focus, we recommend no further evaluation as this finding is a normal variant of no clinical importance with no indication for echocardiography, follow-up ultrasoun She has opted out of cell free DNA Reviewed aneuploidy testing that could be performed during . I explained that definitive testing can be obtained by an amniocentesis, which has a 1/800 risk of loss. We also discussed noninvasive screening via cell free DNA testing. This test can be done on maternal blood and detects DNA. There is a 1:1000 false positive rate for Trisomy 21, therefore a positive test should be confirmed with a amniocentesis. After consideration of risks versus benefits, she has declined amniocentesis. Declined cell free DNA. Vocalized understanding and declines genetic testing and desires assessment if needed. The HC measures less than the 3rd percentile for the gestational age but reference biometric measurement between 2 and 3 SD of the mean. (Chervenak and colleagues, 1984). Reviewed with patient that according to the Society of Maternal- Medicine isolated microcephaly should be defined as HC 3SD below the mean for gestational age. The diagnosis of pathologic microcephaly is considered certain when the HC is 5SD. bowel measures 1 cm. Unclear if small vs large bowel on the image with the measurment. Rescanned and peristalsis was noted. Measurments of large and small bowel were taken then normal, however due to ambiquity of the image will re-evaluate in 1 week. Findings reviewed. Recommendations: Reevaluate the bowel in 1 week Recheck growth in 3 weeks Term delivery Delivery local hospital Declined aneuploidy screening/testing If concerns for bowel on repeat imaging or concerns on repeat growth US patient to be added on for [facility] visit and further recommendations will be made. Given education on kick counts and signs and symptoms of preeclampsia Plan reviewed with patient. She vocalized understanding all questions answered. The patient is to continue with routine care in your office Thank you for allowing me to participate in her care. Please contact me if you have any concerns. Vega Torres MD, FACOG (she/hers) Maternal- Medicine [facility] [address] [place] [address] [facility], the CDC, and other organizations representing maternal and public health professionals recommend that , , and lactating people and those considering receive the COVID-19 vaccination. Vaccination is the best method to reduce maternal and complications of SARS-CoV-2 infection. This document was created with [employer] technology. Though I make every effort to review the dictation as it is transcribed, on occasion the spoken word can be misinterpreted by the technology leading to inappropriate words, phrases, or sentences. This note is addressed to the requesting provider as a consultation for clinical guidance. Specific medical abbreviations are occasionally used and those are generally approved by the [place]?Board of?Obstetrics and?Gynecology?as well as?Imer coyle abbreviations. The above plan of care was based solely on the diagnoses for which a consultation was requested. ?More frequent testing may be indicated based on her other medical/obstetrical conditions. The management of other or medical conditions is beyond the scope of requested consultation and will continue to be followed by the primary international editorial producer or primary care provider. Note to patient: The Century Cures Act makes medical notes like these available to patients in the interest of transparency. However, be advised this is a medical document. It is intended as peer to peer communication. It is written in medical language and may contain abbreviations or verbiage that are unfamiliar. It may appear blunt or direct. Medical documents are intended to carry relevant information, facts as evident, and the clinical opinion of the practitioner. Headache/epigastric pain/blurry vision/swelling? No Cramping/contractions? No Abnormal vaginal discharge? No Spotting/vaginal bleeding? No Loss of fluid like your water may have broken? No Cats in the home? No Do you change the litter box? No Flu vaccine? No Genetic testing done this here or other office? No Have you been seen here at [facility] in a previous ? N/A Recent ER visits or hospitalizations? No Bring blood sugar log or meter with you today? (Please bring them with you for every visit at [facility]) Traveled outside the country in the past 6 month No Any concerns that you would like me to mention to the provider today? No documented in this encounter [facility] 12-09-2023 History of Presen t illness Narrative Subjective No chief complaint on file. Marilu Oconnell is a 28 y.o. at 31w1d with a working estimated date of delivery of 02/09/2024, by Last Menstrual Period who presents for a routine visit. She denies vaginal bleeding, leakage of fluid, decreased movements, or contractions. Her is complicated by: small for dates Objective Physical Exam Expected Total Weight Gain: 15 lb-25 lb Pregravid BMI: 29.30 BP: 112/70 Urine glucose-negative,protein-negati ve Assessment/Plan Diagnoses and all orders for this visit: Poor growth affecting management of mother in third trimester, single or unspecified fetus Continue vitamin. Labs reviewed. GBS at 36 weeks Expected mode of delivery Follow up in 1 week for a routine visit. documented in this encounter [facility] Healthcare Evaluation note Diagnosis 33 weeks gestation of - Primary Echogenic intracardiac focus of fetus on ultrasound [facility] Diagnosis Poor growth affecting management of mother in third trimester, single or unspecified fetus- Primary Polyhydramnios in third trimester complication, single or unspecified fetus 36 weeks gestation of - Primary [facility] Diagnosis Poor growth affecting management of mother in third trimester, single or unspecified fetus- Primary 36 weeks gestation of - Primary [facility]* Diagnosis Poor growth affecting management of mother in third trimester, single or unspecified fetus- Primary [facility] Diagnosis screening for streptococcus B screening for Streptococcus B IUGR (intrauterine growth restriction) affecting care of mother, third trimester, fetus 1 [facility] Diagnosis Poor growth affecting management of mother in third trimester, single or unspecified fetus- Primary [facility]* Attachments The following attachments cannot be sent through Care Everywhere. * Movement (Barbadian) * Preeclampsia (Barbadian) [facility]ructionsNot on file documented in this encounterPro[facility] SystemInstructionsNot on file documented in this encounterProK[facility] SystemInstructionsNot on file [facility] Reason for Referral Specialty Diagnoses / Procedures Referred By Contac t Referred To Contact Maternal and Medicine Diagnoses Poor growth affecting management of mother in third trimester, single or unspecified fetus Polyhydramnios in third trimester complication, single or unspecified fetus Procedures US [facility] with or without consult Rashid Bustamante MD [address], [address] [place] [id number] [facility] Maternal Med [address] [place] [address] Referral ID Status Reason Start Date Expiration Date V isits Requested Visits Authorized [id number] Pending Review 01/13/2024 01/12/2025 1 1 Referral ID Status Reason Start Date Expiration Date V isits Requested Visits Authorized [id number] Pending Review 01/13/2024 01/12/2025 1 1 Specialty Diagnoses / Procedures Referred By Contac t Referred To Contact Maternal and Medicine Diagnoses Poor growth affecting management of mother in third trimester, single or unspecified fetus Procedures US [facility] with or without consult Vega Torres MD [address], [address] [place] [id number] [facility] Maternal Med [address] [place] [address] Referral ID Status Reason Start Date Expiration Date V isits Requested Visits Authorized [id number] Pending Review 01/21/2024 01/20/2025 1 1 Summary Purpose Family History No Family History Records FoundNo Family History Records FoundNo Family History Records Found Advance Directives No Advanced Directives Records FoundNo Advanced Directives Records FoundNo Advanced Directives Records Found Additional Source Comments Reason for Visit (unrecogniz ed section and content) Reason Comments possible IUGR Reason Comments add on for FGR Care Teams (unrecognized sec tion and content) 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 Relationship Specialty Start Date End Date Rai Gonzales MD PCP - General Family Medicine 04/17/18 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 Relationship Specialty Start Date End Date Rai Gonzales MD PCP - General Family Medicine 04/17/18 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 Relationship Specialty Start Date End Date Rai Gonzales MD PCP - General Family Medicine 04/17/18 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 Relationship Specialty Start Date End Date Rai Gonzales MD PCP - [facility] Medicine 04/17/18 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 Relationship Specialty Start Date End Date Rai Gonzales MD PCP - [facility] Medicine 04/17/18 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 Relationship Specialty Start Date End Date Rai Gonzales MD PCP - General Family Medicine 04/17/18 INFORMATION SOURCE (unrecogn ized section and content) DATE CREATED AUTHOR 01/15/2024 [facility] DATE CREATED AUTHOR AUTHOR'S ORGANIZ ATION 01/22/2024 [facility] DATE CREATED AUTHOR AUTHOR'S ORGANIZ ATION 02/03/[address] [facility] EPIC FOR RECORDS PERTAINING TO PATIENTS WHO ARE OR HAVE BEEN ENROLLED IN A CHEMICAL DEPENDENCY/SUBSTANCEABUSE PROGRAM, SOME INFORMATION MAY BE OMITTED. This clinical summary was aggregated from multiple sources. Caution should be exercised in using it in the provision of clinical care. This summary normalizes information from multiple sources, and as a consequence, information in this document may materially change the coding, format and clinical context of patient data. In addition, data may be omitted in some cases. CLINICAL DECISIONS SHOULD BE BASED ON THE PRIMARY CLINICAL RECORDS. [email or web address] [facility]. provides no warranty or guarantee of the accuracy or completeness of information in this document.
--- NOTE | 2024-02-03 20:52 | PC.NURSE ---
Tara and Alcides arrive for follow up. First time mom, states I am just nervous about everything, but think we are doing pretty good States helpful and supportive. Tara VSS and assessment WNL. States nipples are tender and denies open areas. Milk starting to transition in, breasts feel heavier and able to pump more milk for baby. Up to 20 ml per breast. States was pumping and giving combo of breastmilk and formula to keep his sugar up Discussed no longer needing to supplement as volume is coming in and would maintain BS as volume increased. Alcides VSS and assessment WNL. Much education on completed, home with multiple educational handouts for review later. Baby to breast. Mom holds baby by head and hips. baby has arms crossed over chest and is reaching for nipple. Latches at nipple only. Reviewed better positioning and deeper latching . Demo given and immediately latch and suck/ swallows noted. Parents surprised with difference in feeding. Infant removed and mom encouraged to latch independently. Does well. Infant allowed to finish feed. Towards end of feed required stimulation to continue well. Maintained audible swallows. Parents will return 02/06/2024 for further assistance and support. Leave ambulatory for home. verbalized understanding.
[2024-02-03 20:54] VITALS: BP 103/66; PULSE 81; RESP 18; TEMP 36.6; O2SAT 98
== END 2024-02-03 19:00 | disposition home or self-care (01) ==
LOC: FBCO 08:44
PROVIDERS: Visit Provider Midwife
DX: Z39.2 Encounter for routine postpartum follow-up (principal)

== ENCOUNTER 2024-02-06 08:30 | Outpatient (OUT) | payer OTHER, SELFPAY ==
--- OUTSIDE RECORDS SUMMARY | 2024-02-06 08:34 | XMS_ITS | CCD ---
Author Name Unknown Address [address] [place] [address] Organization [facility] Care Team Providers Care Budget Examiner Name Role Phone Rai Gonzales MD Primary [...] needed for nausea or vomiting. 0 Active EBH48-LC-dl8-cke-go a-fish oil ( GUMMY) 400 mcg-35 mg -25 mg-5 mg tablet,chewable (6 sources) Start: 12-23-2023 RTB41-ZP-gx6-uaq-t pa-fish oil ( GUMMY) 400 mcg-35 mg [...] Estimated weight 1517 g. ELECTRONICALLY SIGNED BY: Nathen Beck MD Normal Not Available US OB 14+ WEEKS ANATOMY SCAN on 09-23-2023 US OB 14+ WEEKS ANATOMY SCAN EXAM: US OB 14+ WEEKS ANATOMY SCAN [id number] CLINICAL INDICATION: Anatomy scan COMPARISON: 07/02/2023 FINDINGS: [...] 37.79 kg/m2 Joseph Vickerso CNM Work Phone: [facility] 01-16-2024 09:16-0500 Body weight 90.72 kg Joseph Guallpa CNM Work Phone: [facility] 01-16-2024 09:16-0500 Diastolic blood pressure 80 mm[Hg] Joseph Vickerso CNM Work Phone: [facility] 01-16-2024 09:16-0500 Systolic blood pressure 118 mm[Hg] Joseph Vickerso CNM Work Phone: [facility] 01-13-2024 11:42-0500 Body height 154.9 cm Rashid Bustamante MD Work Phone: [facility] 01-13-2024 11:42-0500 Body mass index (BMI) [Ratio] 37.6 kg/m2 Rashid Bustamante MD Work Phone: [facility] 01-13-2024 11:42-0500 Body weight 90.27 kg Rashid Bustamante MD Work Phone: [facility] 01-13-2024 11:42-0500 Diastolic blood pressure 63 mm[Hg] Rashid Bustamante MD Work Phone: [facility] 01-13-2024 11:42-0500 Heart rate 76 /min Rashid Bustamante MD Work Phone: [facility] 01-13-2024 11:42-0500 Systolic blood pressure 100 mm[Hg] Rashid Bustamante MD Work Phone: [facility] 12-23-2023 13:56-0500 Diastolic blood pressure 63 mm[Hg] Vega Torres MD Work Phone: [facility] 12-23-2023 13:56-0500 Heart rate 91 /min Vega Torres MD Work Phone: [facility] 12-23-2023 13:56-0500 Systolic blood pressure 111 mm[Hg] Vega Torres MD Work Phone: [facility] 12-09-2023 17:33-0500 Diastolic blood pressure 70 mm[Hg] Joseph Floro CNM Work Phone: [facility] 12-09-2023 17:33-0500 Systolic blood pressure 112 mm[Hg] Joseph Floro CNM Work Phone: [facility] Healthcare Encounters Encounter Date Encounter Type Care Provider Facility Start: 01-29-2024 End: 01-30-2024 ambulatory JOSEPH L FLORO Not Available Start: 01-28-2024 Telephone encounter Stephanie Granda RDMS, RVT [facility] US Imaging Start: 01-23-2024 End: 01-24-2024 ambulatory JOSEPH L FLORO Not Available Start: 01-21-2024 Orders Only Maria Fernanda Harrison CMA [facility] rnal- Medicine at [facility] Comment on above: Poor growth af fecting management of mother in third trimester, single or unspecified fetus (Primary Dx) Start: 01-20-2024 End: 01-21-[facility] Start: 01-16-2024 Bamboo flowsheet Joseph L [...] Orders Only Berkley Anthony RN [facility] [place] Comment on above: Poor growth af fecting management of mother in third trimester, single or unspecified fetus (Primary Dx); Polyhydramnios in third trimester complication, single or unspecified fetus Start: 01-13-2024 End: 01-13-2024 Office outpatient visit 15 minutes Rashid Bustamante MD Work Phone: Maternal- Medicine at [facility] Comment on above: Poor growth af fecting management of mother in third trimester, single or unspecified fetus (Primary Dx) Start: 01-02-2024 End: 01-03-2024 ambulatory JOSEPH L FLORO Not Available Start: 12-31-2023 End: 12-31-2023 ambulatory [facility] Start: 12-23-2023 End: 12-23-2023 ambulatory [facility] Start: 12-23-2023 End: 12-23-2023 Office consultation new/estab patient 60 min Vega Torres MD Work Phone: [facility] [place] Comment on above: 33 weeks gestation o [...] unspecified fetus Expected: 01/21/2025 (Approximate), Expires: 01/21/2025 [employer] Work Phone: Comment on above: Expected: 01/21/2025 (Approximate), Expires: 01/21/2025 Start: 01-13-2025 Adult BMI Screening Adult BMI Screen ing [facility] Start: 01-13-2025 Tobacco Screening Tobacco Screening [facility] Start: 12-23-2024 Tobacco Screening Tobacco Screening [facility] Start: 02-11-2024 End: 01-13-2025 US MFM with or without consult US MFM with or without consult Imaging Routine Poor growth affecting management of mother in third trimester, single or unspecified fetus Polyhydramnios in third trimester complication, single or unspecified fetus Expected: 02/11/2024 (Approximate), Expires: 01/13/2025 [facility] Comment on above: Expected: 02/11/2024 (Approximate), Expires: 01/13/2025 Start: 02-03-2024 End: 02-03-2024 Patient encounter procedure 02/03/2024 3:00 PM EST Appointment [facility] US Imaging [address] [place] [id number] [facility] Start: 01-23-2024 End: 01-23-2024 Patient encounter procedure 01/23/2024 3:30 PM EST Routine [facility] [address] [place] [address] Joseph Guallpa CNM [address] [place], [place] [id number] [facility] Start: 01-20-2024 End: 01-13-2025 [...] AM EST Routine [facility] [address] [place] [id number] Joseph Guallpa CNM [address] [place], [place] [id number] [facility] Start: 01-14-2024 End: 01-14-2024 Telemedicine consultation with patient 01/14/2024 1:00 PM EST Telemedicine Maternal- Medicine at [facility] [address] [place] [phone] Vega Torres MD [address], [address] [place] [address] [facility] at [facility] Start: 01-13-2024 End: 01-13-2024 Patient encounter procedure 01/13/2024 11:00 AM EST Appointment [facility] [place] [facility] [place] [address] [facility] [place] Start: 12-31-2023 End: 12-31-2023 Patient encounter procedure 12/31/2023 11:00 AM EST Appointment [facility] [place] [address] [place] [address] [facility] [place] Start: 08-02-2023 Influenza vaccination Influenza Vacc ine [facility] Start: 08-09-2020 DTaP,Tdap and Td Vaccines (7 - Td or Tdap) DTaP,Tdap and Td Vaccines (7 - Td or Tdap) [facility] Start: 2018 Screening for malign ant neoplasm of cervix Pap Smear [facility] Start: 2015 Adult BMI Follow Up Plan Adult BMI Follow Up Plan [facility] Start: 2015 Adult BMI Screening Adult BMI Screen ing [facility] Start: 2009 Depression Screening Depression Scre ening [facility] Payers Date Payer Category Payer Unknown [employer] [id number] 2023-Present [phone] [address] [place] [address] [id number] 2023 Private Health Insurance [id number] 2023 Private Health Insurance [id number] 2023 Unknown [id number] 2017 Private Health Insurance [id number] 1997 Unknown [id number] 286 1997 Unknown [id number] 2.16.840.1.377887.3.579.2.1 286 1997 Unknown [id number] 2.16.840.1.526034.3.579.2.1 286 1997 Unknown [id number] 2.16.840.1.665402.3.579.2.1 286 1997 Unknown [id number] 2.16.840.1.287651.3.579.2.1 286 1997 Unknown [id number] 2.16.840.1.300977.3.579.2.1 286 1997 Unknown [id number] 2.16.840.1.820670.3.579.2.1 286 1997 Unknown [id number] 2.16.840.1.400277.3.579.2.1 286 1997 Unknown [id number] 2.16.840.1.778407.3.579.2.1 259 1997 Unknown [id number] 2.16.840.1.794048.3.579.2.1 259 1997 Unknown [id number] 2.16.840.1.186821.3.579.2.1 259 1997 Unknown [id number] 2.16.840.1.389863.3.579.2.1 259 1997 Unknown [id number] 2.16.840.1.694583.3.579.2.1 259 1997 Unknown [id number] 2.16.840.1.157440.3.579.2.1 259 1997 Unknown [id number] 2.16.840.1.301741.3.579.2.1 259 1997 Unknown [id number] 2.16.840.1.532370.3.579.2.1 259 1997 Unknown [id number] 2.16.840.1.221608.3.579.2.1 259 Social History Date Type Detail Facility Start: 07-03-2023 End: 12-23-2023 Tobacco smoking status DEIS Ex-smoker [facility] History of tobacco use Current smoker [facility] History of tobacco use Cigarette Smoker P [facility] History of tobacco use Tobacco U se Types Packs/Day Years Used Date Smoking Tobacco: Former Cigarettes Vaping/E-cigarettes Smokeless Tobacco: Never [facility] Start: 07-03-2023 End: 12-23-2023 Tobacco use and exposure Smokeless tobacco non-user [facility] Start: 12-23-2023 End: 01-13-2024 Alcohol intake Ex-drinker (finding) [facility] Start: 11-20-2019 End: 01-12-2021 History of Social function [facility] Start: 11-20-2019 End: 01-12-2021 Alcohol Use Disorder Identification Test - Consumption [AUDIT-C] [facility] Frequency of Alcohol Consumption Never [facility] Start: 05-19-2023 [facility] Start: 1995 Sex Assigned At Not on file [facility] Clinical Notes 12-09-2023 to 01-28-2024 Telephone Encounter - Stephanie Granda RDMS, SANNA - 01/28/2024 12:11 PM ESTTelephone Encounter - Stephanie Granda RDMS, RVT - 01/28/2024 12:11 PM Сергей Guallpa CNM - 01/16/2024 9:00 AM EST Note Date & Type Note Facility 01-28-2024 Miscellaneous Notes Formattin g of this note might be different from the original. Call made to [facility]. They confirmed that the patient is scheduled for induction on 01/29/24. Due to induction, the patient is not scheduled for any further umbilical Dopplers. documented in this encounter [facility] 01-28-2024 Telephone encount er Note Call made to [facility]. They confirmed that the patient is scheduled for induction on 01/29/24. Due to induction, the patient is not scheduled for any further umbilical Dopplers. [facility] 01-16-2024 History of Presen t illness [...] a routine visit. documented in this encounter [facility] 01-13-2024 Telephone encount er Note MFM left a vm that they would like you to order a test with the DX OF IUT-R Non stress test. Please call [phone] and let them know when she is scheduled. [facility] 01-13-2024 Miscellaneous Notes Formattin g of this note might be different from the original. MFM left a vm that they would like you to order a test with the DX OF IUT-R Non stress test. Please call [phone] and let them know when she is scheduled. documented in this encounter [facility] 01-13-2024 Miscellaneous Notes Formattin g of this note might be different from the original. VM left for [facility] in [place] regarding scheduling non-stress tests for this patient. [employer] left patient name, date of , and our contact number for any other questions. documented in this encounter [facility] 01-13-2024 Telephone encount er Note VM left for [facility] in [place] regarding scheduling non-stress tests for this patient. [employer] left patient name, date of , and our contact number for any other questions. [facility] 01-13-2024 History of Presen t illness [...] for nausea or vomiting., Disp: , Rfl: OMZ02-GV-zk2-uma-axw-dzlx oil ( GUMMY) 400 mcg-35 mg -25 [...] you for allowing me to participate in [facility]. If there are any questions, please do not hesitate to call me. Sincerely, RASHID BUSTAMANTE MD Video Visit via Real-time Synchronous Audiovisual Provider Location: [facility] MATERNAL- MEDICINE AT [address] [address] Patient Location: [facility] office. Patient Location Wash Rack Operator: None Video Visit Consent Statement: I discussed [...] that there are some limitations compared to xcnd-dr-orxg evaluations. We elected to proceed. documented in this encounter [facility] [employer] [facility] 12-23-2023 History of Presen t illness Narrative [facility] Maternal- Medicine Consult Note Reason For Consult: [...] consultation regardin. 33 weeks gestation of - XWR21-BX-pn8-zex-uap-dztl oil ( GUMMY) 400 mcg-35 mg -25 [...] be risk factor for Down syndrome. Per [facility] recommendations for people with negative serum or [...] US patient to be added on for [facility] visit and further recommendations will be [...] Vega Torres MD, FACOG (she/hers) Maternal- Medicine [facility] [address] [place] [address] [facility], the CDC, and other organizations representing maternal and public health professionals recommend that , , and lactating people and those considering receive the COVID-19 vaccination. Vaccination is the best method to reduce maternal and complications of SARS-CoV-2 infection. This document was created with [employer] technology. Though I make every effort to review the dictation as it is transcribed, on occasion the spoken word can be misinterpreted by the technology leading to inappropriate words, phrases, or sentences. This note is addressed to the requesting provider as a consultation for clinical guidance. Specific medical abbreviations are occasionally used and those are generally approved by the [place]?Board of?Obstetrics and?Gynecology?as well as?Imer coyle abbreviations. The above plan of care was based solely on the diagnoses for which a consultation was requested. ?More frequent testing may be indicated based on her other medical/obstetrical conditions. The management of other or medical conditions is beyond the scope of requested consultation and will continue to be followed by the primary word processing machine operator or primary care provider. Note to patient: [...] No Have you been seen here at [facility] in a previous ? N/A Recent ER visits or hospitalizations? No Bring blood sugar log or meter with you today? (Please bring them with you for every visit at [facility]) Traveled outside the country in the past 6 month No Any concerns that you would like me to mention to the provider today? No documented in this encounter [facility] 12-09-2023 History of Presen t illness [...] a routine visit. documented in this encounter [facility] Healthcare Evaluation note Diagnosis 33 weeks gestation of - Primary Echogenic intracardiac focus of fetus on ultrasound [facility] Poor growth affecting management of mother in third trimester, single or unspecified fetus- Primary Polyhydramnios in third trimester complication, single or unspecified fetus 36 weeks gestation of - Primary [facility] Diagnosis Poor growth affecting management of mother in third trimester, single or unspecified fetus- Primary 36 weeks gestation of - Primary [facility] Diagnosis Poor growth affecting management [...] unspecified fetus- Primary [facility]* Attachments The following attachments cannot be sent through Care Everywhere. * Movement (Citizen [place]) * Preeclampsia (Citizen [place]) documented in this encounter[facility] System[facility]ructionsNot on file documented in this encounterPro[facility] SystemInstructionsNot on file documented in this encounterPro[facility] SystemInstructionsNot on file [facility] Reason for Referral Specialty Diagnoses / Procedures Referred By Contac t Referred To Contact Maternal and Medicine Diagnoses Poor growth affecting management of mother in third trimester, single or unspecified fetus Polyhydramnios in third trimester complication, single or unspecified fetus Procedures US [facility] with or without consult Rashid Bustamante MD [address], [address] [place] [address] [id number] [facility] Maternal Med [address] [place] [address] Referral ID Status Reason Start Date Expiration Date V isits Requested Visits Authorized [id number] Pending Review 01/13/2024 01/12/2025 1 1 Referral ID Status Reason Start Date Expiration Date V isits Requested Visits Authorized [id number] Pending Review 01/13/2024 01/12/2025 1 1 Specialty Diagnoses / Procedures Referred By Contac t Referred To Contact Maternal and Medicine Diagnoses Poor growth affecting management of mother in third trimester, single or unspecified fetus Procedures US [facility] with or without consult Vega Torres MD [address], [address] [place] [address] [address] [facility] Maternal Med [address] [place] [address] Referral ID Status Reason Start Date Expiration Date V isits Requested Visits Authorized [id number] Pending Review 01/21/2024 01/20/2025 1 1 Summary [...] Care Teams (unrecognized sec tion and content) Budget Examiner Relationship Specialty Start Date End Date Rai Gonzales MD PCP - General Family Medicine 04/17/18 Budget Examiner Relationship Specialty Start Date End Date Rai Gonzales MD PCP - General Family Medicine 04/17/18 Budget Examiner Relationship Specialty Start Date End Date Rai Gonzales MD PCP - General Family Medicine 04/17/18 Budget Examiner Relationship Specialty Start Date End Date Rai Gonzales MD PCP - [facility] Medicine 04/17/18 Budget Examiner Relationship Specialty Start Date End Date Rai Gonzales MD PCP - [facility] Medicine 04/17/18 Budget Examiner Relationship Specialty Start Date End Date Rai Gonzales MD PCP - General Family Medicine 04/17/18 INFORMATION SOURCE (unrecogn ized section and content) DATE CREATED AUTHOR 01/15/2024 [facility] DATE CREATED AUTHOR AUTHOR'S ORGANIZ ATION 01/22/2024 [facility] DATE CREATED AUTHOR AUTHOR'S ORGANIZ ATION 02/03/2024 [facility] dical Specialists EPIC FOR RECORDS PERTAINING [...] BE BASED ON THE PRIMARY CLINICAL RECORDS. [facility]. provides no warranty or guarantee of the accuracy or completeness of information in this document.
== END 2024-02-06 08:31 | disposition home or self-care (01) ==
LOC: FBCO 08:32
PROVIDERS: Visit Provider Midwife
DX: Z39.1 Encounter for care and examination of lactating mother (principal)
CPT/HCPCS: G0463

== ENCOUNTER 2024-02-12 08:40 | Outpatient (OUT) | payer OTHER, SELFPAY ==
--- OUTSIDE RECORDS SUMMARY | 2024-02-12 09:05 | XMS_ITS | CCD ---
Author Name Unknown Address [address] [place] [address] Organization [facility] Care Team Providers Care Librarian Helper Name Role Phone Rai Gonzales MD Primary [...] Unavailable GONZALES, RAI P Primary Care Unavailable DINANA, RASHID Attending Unavailable GONZALES, RAI P Primary [...] needed for nausea or vomiting. 0 Active RDO53-VD-er4-orc-id a-fish oil ( GUMMY) 400 mcg-35 mg -25 mg-5 mg tablet,chewable (6 sources) Start: 12-23-2023 SRQ99-GP-vb6-tov-s pa-fish oil ( GUMMY) 400 mcg-35 mg [...] EXAM: US OB 14+ WEEKS ANATOMY SCAN [id number] CLINICAL INDICATION: Anatomy scan COMPARISON: 07/02/2023 FINDINGS: [...] 37.79 kg/m2 Joseph Vickerso CNM Work Phone: [facility] 01-16-2024 09:16-0500 Body weight 90.72 kg Joseph Guallpa CNM Work Phone: [facility] 01-16-2024 09:16-0500 Diastolic blood pressure 80 mm[Hg] Joseph Vickerso CNM Work Phone: [facility] 01-16-2024 09:16-0500 Systolic blood pressure 118 mm[Hg] Joseph Vickerso CNM Work Phone: [facility] 01-13-2024 11:42-0500 Body height 154.9 cm Rashid Bustamante MD Work Phone: [facility] 01-13-2024 11:42-0500 Body mass index (BMI) [Ratio] 37.6 kg/m2 Rashid Bustamante MD Work Phone: [facility] 01-13-2024 11:42-0500 Body weight 90.27 kg Rashid Bustamante MD Work Phone: [facility] 01-13-2024 11:42-0500 Diastolic blood pressure 63 mm[Hg] Rashid Bustamante MD Work Phone: [facility] 01-13-2024 11:42-0500 Heart rate 76 /min Rashid Bustamante MD Work Phone: [facility] 01-13-2024 11:42-0500 Systolic blood pressure 100 mm[Hg] Rashid Bustamante MD Work Phone: [facility] 12-23-2023 13:56-0500 Diastolic blood pressure 63 mm[Hg] Vega Torres MD Work Phone: [facility] 12-23-2023 13:56-0500 Heart rate 91 /min Vega Torres MD Work Phone: [facility] 12-23-2023 13:56-0500 Systolic blood pressure 111 mm[Hg] Vega Torres MD Work Phone: [facility] 12-09-2023 17:33-0500 Diastolic blood pressure 70 mm[Hg] Joseph Floro CNM Work Phone: [facility] 12-09-2023 17:33-0500 Systolic blood pressure 112 mm[Hg] Joseph Floro CNM Work Phone: [facility] Healthcare Encounters Encounter Date Encounter Type Care Provider Facility Start: 01-29-2024 End: 01-30-2024 ambulatory JOSEPH L FLORO Not Available Start: 01-28-2024 Telephone encounter Stephanie Granda RDMS, RVT [facility] US Imaging Start: 01-23-2024 End: 01-24-2024 ambulatory JOSEPH L FLORO Not Available Start: 01-21-2024 Orders Only Maria Fernanda Harrison CMA [facility]- Medicine at [facility] Comment on above: Poor growth af fecting management of mother in third trimester, single or unspecified fetus (Primary Dx) Start: 01-20-2024 End: [facility]-21[facility]: 01-16-[facility]24 Bamboo flowsheet Joseph L [...] Orders Only Berkley Anthony RN [facility] Comment on above: Poor growth af fecting management of mother in third trimester, single or unspecified fetus (Primary Dx); Polyhydramnios in third trimester complication, single or unspecified fetus Start: 01-13-2024 End: 01-13-2024 Office outpatient visit 15 minutes Rashid Bustamante MD Work Phone: [facility]- Medicine at [facility] Comment on above: Poor growth af fecting management of mother in third trimester, single or unspecified fetus (Primary Dx) Start: 01-02-2024 End: 01-03-2024 ambulatory JOSEPH L FLORO Not Available Start: 12-31-2023 End: 12-31-2023 ambulatory [facility] Start: 12-23-2023 End: 12-23-2023 ambulatory [facility] Start: 12-23-2023 End: 12-23-2023 Office consultation new/estab patient 60 min Vega Torres MD Work Phone: [facility] Comment on above: 33 weeks gestation o [...] unspecified fetus Expected: 01/21/2025 (Approximate), Expires: 01/21/2025 [employer] Work Phone: Comment on above: Expected: 01/21/2025 (Approximate), Expires: 01/21/2025 Start: 01-13-2025 Adult BMI Screening Adult BMI Screen ing [facility] Start: 01-13-2025 Tobacco Screening Tobacco Screening [facility] Start: 12-23-2024 Tobacco Screening Tobacco Screening [facility] Start: 02-11-2024 End: 01-13-2025 US MFM with or without consult US MFM with or without consult Imaging Routine Poor growth affecting management of mother in third trimester, single or unspecified fetus Polyhydramnios in third trimester complication, single or unspecified fetus Expected: 02/11/2024 (Approximate), Expires: 01/13/2025 [facility] Comment on above: Expected: 02/11/2024 (Approximate), Expires: 01/13/2025 Start: 02-03-2024 End: 02-03-2024 Patient encounter procedure 02/03/2024 3:00 PM EST Appointment [facility] Imaging [address] [place] [id number] [facility] Start: 01-23-2024 End: 01-23-2024 Patient encounter procedure 01/23/2024 3:30 PM EST Routine [facility] [address] [place] [address] Joseph Guallpa CNM [address] [place], [place] [id number] [facility] Start: 01-20-2024 End: 01-13-2025 [...] AM EST Routine [facility] [address] [place] [phone] Joseph Guallpa CNM [address] [place], [place] [id number] [facility] Start: 01-14-2024 End: 01-14-2024 Telemedicine consultation with patient 01/14/2024 1:00 PM EST Telemedicine [facility] at [facility] [address] [place] [phone] Vega Torres MD [address], [address] [place] [address] [facility] Start: 01-13-2024 End: 01-13-2024 Patient encounter procedure 01/13/2024 11:00 AM EST Appointment [facility] [place] [address] [facility] Start: 12-31-2023 End: 12-31-2023 Patient encounter procedure 12/31/2023 11:00 AM EST Appointment [facility] [address] [place] [address] [facility] Start: 08-02-2023 Influenza vaccination Influenza Vacc ine [facility] Start: 08-09-2020 DTaP,Tdap and Td Vaccines (7 - Td or Tdap) DTaP,Tdap and Td Vaccines (7 - Td or Tdap) [facility] Start: 2018 Screening for malign ant neoplasm of cervix Pap Smear [facility] Start: 2015 Adult BMI Follow Up Plan Adult BMI Follow Up Plan [facility] Start: 2015 Adult BMI Screening Adult BMI Screen ing [facility] Start: 2009 Depression Screening Depression Scre ening [facility] Payers Date Payer Category Payer Unknown [employer] [id number] 2023-Present [phone] [address] [place] [address] [id number] 2023 Private Health Insurance [id number] 2023 Private Health Insurance [id number] 2023 Unknown [id number] 2017 Private Health Insurance [id number] 1997 Unknown [id number] [id number] 286 1997 Unknown [id number] 2.16.840.1.876054.3.579.2.1 286 1997 Unknown [id number] 2.16.840.1.521210.3.579.2.1 286 1997 Unknown [id number] 2.16.840.1.620054.3.579.2.1 286 1997 Unknown [id number] 2.16.840.1.013972.3.579.2.1 286 1997 Unknown [id number] 2.16.840.1.087783.3.579.2.1 286 1997 Unknown [id number] 2.16.840.1.493417.3.579.2.1 286 1997 Unknown [id number] 2.16.840.1.241628.3.579.2.1 286 1997 Unknown [id number] 2.16.840.1.584824.3.579.2.1 259 1997 Unknown [id number] 2.16.840.1.001658.3.579.2.1 259 1997 Unknown [id number] 2.16.840.1.971762.3.579.2.1 259 1997 Unknown [id number] 2.16.840.1.820861.3.579.2.1 259 1997 Unknown [id number] 2.16.840.1.781649.3.579.2.1 259 1997 Unknown [id number] 2.16.840.1.339650.3.579.2.1 259 1997 Unknown [id number] 2.16.840.1.199912.3.579.2.1 259 1997 Unknown [id number] 2.16.840.1.469583.3.579.2.1 259 1997 Unknown [id number] 2.16.840.1.127385.3.579.2.1 259 Social History Date Type Detail Facility Start: 07-03-2023 End: 12-23-2023 Tobacco smoking status NEIS Ex-smoker [facility] History of tobacco use Current smoker [facility] History of tobacco use Cigarette Smoker P [facility] History of tobacco use Tobacco U se Types Packs/Day Years Used Date Smoking Tobacco: Former Cigarettes Vaping/E-cigarettes Smokeless Tobacco: Never [facility] Start: 07-03-2023 End: 12-23-2023 Tobacco use and exposure Smokeless tobacco non-user [facility] Start: 12-23-2023 End: 01-13-2024 Alcohol intake Ex-drinker (finding) [facility] Start: 11-20-2019 End: 01-12-2021 History of Social function [facility] Start: 11-20-2019 End: 01-12-2021 Alcohol Use Disorder Identification Test - Consumption [AUDIT-C] [facility] Frequency of Alcohol Consumption Never [facility] Start: 05-19-2023 [facility] Start: 1997 Sex Assigned At Not on file [facility] Clinical Notes 12-09-2023 to 01-28-2024 Telephone Encounter - Stephanie Granda RDMS, SANNA - 01/28/2024 12:11 PM ESTTelephone Encounter - Stephanie Granda RDMS, RVT - 01/28/2024 12:11 PM Сергей Guallpa CNM - 01/16/2024 9:00 AM EST Note Date & Type Note Facility 01-28-2024 Miscellaneous Notes Formattin g of this note might be different from the original. Call made to [facility]. They confirmed that the patient is scheduled for induction on 01/29/24. Due to induction, the patient is not scheduled for any further umbilical Dopplers. documented in this encounter [facility] 01-28-2024 Telephone encount er Note Call made to [facility]. They confirmed that the patient is scheduled for induction on 01/29/24. Due to induction, the patient is not scheduled for any further umbilical Dopplers. [facility] 01-16-2024 History of Presen t illness Narrative [...] a routine visit. documented in this encounter [facility] 01-13-2024 Telephone encount er Note MFM left a vm that they would like you to order a test with the DX OF IUT-R Non stress test. Please call [phone] and let them know when she is scheduled. [facility] 01-13-2024 Miscellaneous Notes Formattin g of this note might be different from the original. MFM left a vm that they would like you to order a test with the DX OF IUT-R Non stress test. Please call [phone] and let them know when she is scheduled. documented in this encounter [facility] 01-13-2024 Miscellaneous Notes Formattin g of this note might be different from the original. VM left for [facility] in [place] regarding scheduling non-stress tests for this patient. Tube Backer left patient name, date of , and our contact number for any other questions. documented in this encounter [facility] 01-13-2024 Telephone encount er Note VM left for [facility] in [place] regarding scheduling non-stress tests for this patient. Tube Backer left patient name, date of , and our contact number for any other questions. [facility] 01-13-2024 History of Presen t illness Narrative [...] pregnancies and is a leading cause of morbidity and mortality. In fetuses at all [...] for nausea or vomiting., Disp: , Rfl: RRZ98-BE-hp2-lad-gfn-xqdn oil ( GUMMY) 400 mcg-35 mg -25 [...] you for allowing me to participate in [facility]. If there are any questions, please do not hesitate to call me. Sincerely, RASHID BUSTAMANTE MD Video Visit via Real-time Synchronous Audiovisual Provider Location: [facility] MATERNAL- MEDICINE AT [address] [address] Patient Location: [facility] office. Patient Location Senior Boiler Operator: None Video Visit Consent Statement: I [...] that there are some limitations compared to mbym-ks-ulvm evaluations. We elected to proceed. documented in this encounter [facility] 12-23-2023 History of Presen t illness Narrative [facility] Maternal- Medicine Consult Note Reason For Consult: [...] consultation regardin. 33 weeks gestation of - UQX91-TD-mg5-qny-zdz-uhlz oil ( GUMMY) 400 mcg-35 mg -25 [...] be risk factor for Down syndrome. Per [facility] recommendations for people with negative serum or [...] US patient to be added on for [facility] visit and further recommendations will be [...] Vega Torres MD, FACOG (she/hers) Maternal- Medicine [facility] [address] [place] [address] [facility], the CDC, and other organizations representing maternal and public health professionals recommend that , , and lactating people and those considering receive the COVID-19 vaccination. Vaccination is the best method to reduce maternal and complications of SARS-CoV-2 infection. This document was created with [employer] technology. Though I make every effort to review the dictation as it is transcribed, on occasion the spoken word can be misinterpreted by the technology leading to inappropriate words, phrases, or sentences. This note is addressed to the requesting provider as a consultation for clinical guidance. Specific medical abbreviations are occasionally used and those are generally approved by the [place]?Board of?Obstetrics and?Gynecology?as well as?Imer coyle abbreviations. The above plan of care was based solely on the diagnoses for which a consultation was requested. ?More frequent testing may be indicated based on her other medical/obstetrical conditions. The management of other or medical conditions is beyond the scope of requested consultation and will continue to be followed by the primary goodwill representative or primary care provider. Note to patient: [...] No Have you been seen here at [facility] in a previous ? N/A Recent ER visits or hospitalizations? No Bring blood sugar log or meter with you today? (Please bring them with you for every visit at [facility]) Traveled outside the country in the past 6 month No Any concerns that you would like me to mention to the provider today? No documented in this encounter [facility] 12-09-2023 History of Presen t illness Narrative [...] a routine visit. documented in this encounter [facility] Healthcare Evaluation note Diagnosis 33 weeks gestation of - Primary Echogenic intracardiac focus of fetus on ultrasound [facility] Diagnosis Poor growth affecting management of mother in third trimester, single or unspecified fetus- Primary Polyhydramnios in third trimester complication, single or unspecified fetus 36 weeks gestation of - Primary [facility] Diagnosis Poor growth affecting management of mother in third trimester, single or unspecified fetus- Primary 36 weeks gestation of - Primary [facility] Diagnosis Poor growth affecting [...] unspecified fetus- Primary [facility] Attachments The following attachments cannot be sent through Care Everywhere. * Movement ([place]) * Preeclampsia ([place]) [facility] documented in [facility] System[facility]ructionsNot on file documented in [facility] System[facility]ructionsNot on file [facility] Reason for Referral Specialty Diagnoses / Procedures Referred By Contac t Referred To Contact Maternal and Medicine Diagnoses Poor growth affecting management of mother in third trimester, single or unspecified fetus Polyhydramnios in third trimester complication, single or unspecified fetus Procedures [facility] with or without consult Rashid Bustamante MD [address], [address] [place] [address] [facility] Maternal Med [address] [place] [address] Referral ID Status Reason Start Date Expiration Date V isits Requested Visits Authorized [id number] Pending Review 01/13/2024 01/12/2025 1 1 Referral ID Status Reason Start Date Expiration Date V isits Requested Visits Authorized [id number] Pending Review 01/13/2024 01/12/2025 1 1 Specialty Diagnoses / Procedures Referred By Contac t Referred To Contact Maternal and Medicine Diagnoses Poor growth affecting management of mother in third trimester, single or unspecified fetus Procedures [facility] with or without consult Vega Torres MD [address], [address] [place] [address] [facility] Maternal Med [address] [place] [address] Referral ID Status Reason Start Date Expiration Date V isits Requested Visits Authorized [id number] Pending Review 01/21/2024 01/20/2025 1 1 Summary [...] Care Teams (unrecognized sec tion and content) Librarian Helper Relationship Specialty Start Date End Date Rai Gonzales MD PCP - General Family Medicine 04/17/18 Librarian Helper Relationship Specialty Start Date End Date Rai Gonzales MD PCP - General Family Medicine 04/17/18 Librarian Helper Relationship Specialty Start Date End Date Rai Gonzales MD PCP - General Family Medicine 04/17/18 Librarian Helper Relationship Specialty Start Date End Date Rai Gonzales MD PCP - [facility] Medicine 04/17/18 Librarian Helper Relationship Specialty Start Date End Date Rai Gonzales MD PCP - [facility] Medicine 04/17/18 Librarian Helper Relationship Specialty Start Date End Date Rai Gonzales MD PCP - General Family Medicine 04/17/18 INFORMATION SOURCE (unrecogn ized section and content) DATE CREATED AUTHOR 01/15/2024 [facility] DATE CREATED AUTHOR AUTHOR'S ORGANIZ ATION 01/22/2024 [facility] DATE CREATED AUTHOR AUTHOR'S ORGANIZ ATION 02/03/2024 [facility] Special[facility] EPIC FOR RECORDS PERTAINING [...] BE BASED ON THE PRIMARY CLINICAL RECORDS. [employer] [facility]. provides no warranty or guarantee of the accuracy or completeness of information in this document.
--- NOTE | 2024-02-12 15:06 | PC.NURSE ---
Alcides Pacheco and 12 day old son, Alcides arrive for support. Father states he still sucks air and spits up a lot Mom verifies that baby is noisy with feeds and has hiccups frequently as well as frequent spits after feeding. NB Alcides to scales and weight up 7 oz since last visit. Multiple wets and yellow stools. Mom reports, eats every 2-3 hours, and nurses both breasts. offered breast, mom continues to use to use both arms in an arm curl motion to bring baby to the breast. latches and re latches several times before maintaining latch. noted to suck sharply, drawing in air. Parents states he does this every feed the whole feed. LC helps mom find a way to modify arm curl to bring to breast with chin first not nose and forehead, baby latches deeply, nurses quietly and finishes feed. Revisits concerns of lip tie, parents ask questions and answers given. LC supports parents decision either choice for revision or not. Parents and NB leave ambulatory, will call for further support once has been evaluated by pediatric dentist for lip tie and possible posterior tie.
== END 2024-02-12 15:00 | disposition home or self-care (01) ==
LOC: FBCO 08:47
PROVIDERS: Visit Provider Midwife
DX: Z39.1 Encounter for care and examination of lactating mother (principal)